=== PATIENT | female | born 1995 | race Caucasian/White ===

== ENCOUNTER 2018-06-06 15:16 | Inpatient (IN) | payer MEDICAID ==
[~2018-06-06 15:16] MED LIST: EPHEDrine SULFATE 50 MG/5 ML SYG
[2018-06-06] MEDS ORDERED: OXYTOCIN 30 UNITS/LR 500 ML IV ×3 (15:30→21:00)
[2018-06-06] MEDS ORDERED: CEFAZOLIN 2 GM/50 ML (PMX) 50 ML IVPB (15:30)
[2018-06-06] MEDS ORDERED: METHYLERGONOVINE 0.2 MG INJ IM ×2 (15:30→21:00)
[2018-06-06] MEDS ORDERED: CARBOPROST 250 MCG INJ IM ×2 (15:30→21:00)
[2018-06-06] MEDS ORDERED: MISOPROSTOL 200 MCG TAB PR ×2 (15:30→21:00)
[2018-06-06 15:47] LABS: ADD MAN DIFF? NO
[2018-06-06 15:52] LABS: WHITE BLOOD COUNT 7.3 10^3/ul (4.8-10.8)
[2018-06-06 15:52] LABS: BASOPHILS % 0.4 % (0.0-2.0); EOSINOPHILS # 0.1 10^3/ul (0.0-0.5); EOSINOPHILS % 0.7 % (0.0-7.0); HEMATOCRIT 36.5 % (37.0-47.0); HEMOGLOBIN 12.3 g/dl (12.0-16.0); LYMPHOCYTES # 1.6 10^3/ul (0.8-2.9); LYMPHOCYTES % 21.7 % (15.0-51.0); MEAN CORPUSCULAR HEMOGLOBIN 28.5 pg (29.0-33.0); MEAN CORPUSCULAR HGB CONC 33.7 g/dl (32.0-37.0); MEAN CORPUSCULAR VOLUME 84.5 fl (82.0-101.0); MEAN PLATELET VOLUME 11.4 fl (7.4-10.4); MONOCYTE # 0.4 10^3/ul (0.3-0.9); MONOCYTES % 5.6 % (0.0-11.0); NEUTROPHIL # 5.2 10^3/ul (1.6-7.5); NEUTROPHILS % 71.1 % (39.0-77.0); PLATELET COUNT 222 10^3/UL (140-415); RED BLOOD COUNT 4.32 10^6/ul (4.20-5.40); RED CELL DISTRIBUTION WIDTH 13.4 % (11.5-14.5)
[2018-06-06] MEDS: LACTATED RINGER'S 1,000 ML IV (16:05)
[2018-06-06 16:17] LABS: INR 0.81; PROTIME 11.3 Sec (11.9-14.9); PT RATIO 0.9
[2018-06-06 16:18] LABS: PARTIAL THROMBOPLASTIN TIME 27.6 Sec (23.0-35.0)
[2018-06-06] MEDS ORDERED: ONDANSETRON 4 MG INJ (18:25)
[2018-06-06] MEDS ORDERED: METOCLOPRAMIDE 10 MG INJ (18:25)
[2018-06-06] MEDS ORDERED: morphine SULFATE/PF (10 MG/10 ML) INJ (18:25)
[2018-06-06] MEDS ORDERED: KETOROLAC 30 MG INJ (18:39)
[2018-06-06] MEDS ORDERED: KETOROLAC 30 MG INJ IV (20:00)
[2018-06-06] MEDS ORDERED: DIPHENHYDRAMINE 50 MG INJ IV ×2 (20:00)
[2018-06-06] MEDS ORDERED: morphine 2 MG INJ IV ×3 (20:00)
[2018-06-06] MEDS ORDERED: ONDANSETRON 4 MG INJ IV (20:00)
[2018-06-06] MEDS ORDERED: NALOXONE (0.4 MG/ML) INJ IV ×2 (20:00)
[2018-06-06] MEDS ORDERED: morphine (1 MG/ML) 10ML SYRINGE IV ×3 (20:00)
[2018-06-06] MEDS: DEXTROSE 5%-LR 1,000 ML IV (20:46)
[2018-06-06] MEDS ORDERED: METHYLERGONOVINE 0.2 MG TAB PO (21:00)
[2018-06-06] MEDS ORDERED: LANOLIN HPA 1 PKT TOP (21:00)
[2018-06-06] MEDS: IBUPROFEN 800 MG TAB PO (22:56)
[2018-06-06] MEDS: SENNA/DOCUSATE NA (8.6MG/50MG) TAB PO (22:57)
[2018-06-07] MEDS: ONDANSETRON 4 MG INJ IV (01:23)
[2018-06-07] MEDS: LACTATED RINGER'S 1,000 ML IV ×3 (01:35→15:22)
[2018-06-07] MEDS: OXYTOCIN 30 UNITS/LR 500 ML IV (01:51)
[2018-06-07] MEDS: DEXTROSE 5%-LR 1,000 ML IV ×2 (04:46→12:46)
[2018-06-07] MEDS: IBUPROFEN 800 MG TAB PO ×3 (05:47→22:00)
[2018-06-07 08:06] LABS: ADD MAN DIFF? NO
[2018-06-07 08:12] LABS: BASOPHILS % 0.3 % (0.0-2.0); EOSINOPHILS % 0.5 % (0.0-7.0); HEMATOCRIT 32.3 % (37.0-47.0); HEMOGLOBIN 10.8 g/dl (12.0-16.0); LYMPHOCYTES # 1.6 10^3/ul (0.8-2.9); LYMPHOCYTES % 20.2 % (15.0-51.0); MEAN CORPUSCULAR HEMOGLOBIN 28.3 pg (29.0-33.0); MEAN CORPUSCULAR HGB CONC 33.4 g/dl (32.0-37.0); MEAN CORPUSCULAR VOLUME 84.8 fl (82.0-101.0); MEAN PLATELET VOLUME 11.6 fl (7.4-10.4); MONOCYTE # 0.6 10^3/ul (0.3-0.9); MONOCYTES % 7.4 % (0.0-11.0); NEUTROPHIL # 5.7 10^3/ul (1.6-7.5); NEUTROPHILS % 71.1 % (39.0-77.0); PLATELET COUNT 186 10^3/UL (140-415); RED BLOOD COUNT 3.81 10^6/ul (4.20-5.40); RED CELL DISTRIBUTION WIDTH 13.7 % (11.5-14.5)
[2018-06-07] MEDS: SENNA/DOCUSATE NA (8.6MG/50MG) TAB PO ×2 (08:47→20:33)
[2018-06-07] MEDS: DIPHTH/TET/ACEL PERTUSS (ADULT) 0.5 ML VIAL IM* (11:00)
[2018-06-07] MEDS: KETOROLAC 30 MG INJ IV (11:09)
[2018-06-07] MEDS: HYDROCODONE/APAP (5/325) TAB GTB ×2 (14:00→22:00)
[2018-06-07 15:01] LABS: RAPID PLASMA REAGIN NONREACTIVE (NR)
[2018-06-07] MEDS: HYDROCODONE/APAP (5/325) TAB NGT (20:34)
[2018-06-08] MEDS: HYDROCODONE/APAP (5/325) TAB GTB ×3 (06:19→22:47)
[2018-06-08] MEDS: IBUPROFEN 800 MG TAB PO ×3 (06:20→22:47)
[2018-06-08] MEDS: SENNA/DOCUSATE NA (8.6MG/50MG) TAB PO ×2 (09:19→21:24)
[2018-06-09] MEDS: IBUPROFEN 800 MG TAB PO ×2 (06:11→14:42)
[2018-06-09] MEDS: HYDROCODONE/APAP (5/325) TAB GTB ×2 (06:11→14:42)
[2018-06-09] MEDS: MEASLES,MUMPS,RUBELLA VACCINE INJ SC* (09:00)
[2018-06-09] MEDS: DIPHTH/TET/ACEL PERTUSS (ADULT) 0.5 ML VIAL IM* (09:00)
[2018-06-09] MEDS: SENNA/DOCUSATE NA (8.6MG/50MG) TAB PO (14:43)
== END 2018-06-09 16:08 | disposition home or self-care (01) | DRG 788 ==
LOC: L-D 15:16 → PP1 21:59
PROVIDERS: Obstetrics & Gynecology
PROC: 10D00Z1 Extraction of Products of Conception, Low, Open Approach (ICD-10-PCS; principal; 2018-06-06 17:00)
DX: O34.211 Maternal care for low transverse scar from previous cesarean delivery (principal); Z3A.39 39 weeks gestation of pregnancy; Z37.0 Single live birth
CPT/HCPCS: 85025; 85610; 85730; 86592; 86850; 86900; 86901; 99464

== ENCOUNTER 2018-09-10 10:03 | Emergency (ER) | payer MEDICAID ==
[2018-09-10] MEDS: SOD CHLORIDE 0.9% 1,000 ML IV (11:58)
[2018-09-10] MEDS: KETOROLAC 15 MG INJ IV (12:00)
[2018-09-10] MEDS: ONDANSETRON 4 MG INJ IV (12:00)
[2018-09-10 12:17] LABS: ADD MAN DIFF? NO
[2018-09-10 12:22] LABS: WHITE BLOOD COUNT 3.4 10^3/ul (4.8-10.8)
[2018-09-10 12:22] LABS: BASOPHILS % 0.6 % (0.0-2.0); EOSINOPHILS % 0.6 % (0.0-7.0); HEMATOCRIT 36.8 % (37.0-47.0); HEMOGLOBIN 12.5 g/dl (12.0-16.0); LYMPHOCYTES # 1.4 10^3/ul (0.8-2.9); LYMPHOCYTES % 42.7 % (15.0-51.0); MEAN CORPUSCULAR HEMOGLOBIN 28.5 pg (29.0-33.0); MEAN CORPUSCULAR VOLUME 83.8 fl (82.0-101.0); MEAN PLATELET VOLUME 10.4 fl (7.4-10.4); MONOCYTE # 0.5 10^3/ul (0.3-0.9); MONOCYTES % 14.8 % (0.0-11.0); NEUTROPHIL # 1.4 10^3/ul (1.6-7.5); NEUTROPHILS % 40.7 % (39.0-77.0); PLATELET COUNT 233 10^3/UL (140-415); RED BLOOD COUNT 4.39 10^6/ul (4.20-5.40); RED CELL DISTRIBUTION WIDTH 12.3 % (11.5-14.5)
[2018-09-10 12:27] LABS: ADD UMIC YES; UR ASCORBIC ACID NEGATIVE (NEGATIVE); UR BACTERIA FEW /HPF (NONE SEEN); UR BILIRUBIN (Dip) NEGATIVE (NEGATIVE); UR BLOOD (Dip) 3+ mg/dL (NEGATIVE); UR CLARITY SLIGHTLY CLOUDY (CLEAR); UR COLOR YELLOW (YELLOW); UR GLUCOSE (Dip) NEGATIVE (NEGATIVE); UR KETONES (Dip) NEGATIVE (NEGATIVE); UR LEUKOCYTE ESTERASE (Dip) TRACE Leu/ul (NEGATIVE); UR MUCUS FEW /HPF (NONE SEEN); UR NITRITE (Dip) NEGATIVE (NEGATIVE); UR RBC > 182 /HPF (0-5); UR SPECIFIC GRAVITY (Dip) 1.019 (1.003-1.030); UR SQUAMOUS EPITHELIAL CELL FEW /HPF (FEW); UR TOTAL PROTEIN (Dip) NEGATIVE (NEGATIVE); UR UROBILINOGEN (Dip) 2+ mg/dL (NEGATIVE); UR WBC 10 /HPF (0-5)
[2018-09-10 12:39] LABS: ALANINE AMINOTRANSFERASE 82 IU/L (13-69); ALBUMIN 4.1 g/dl (3.3-4.9); ALBUMIN/GLOBULIN RATIO 1.17; ALKALINE PHOSPHATASE 116 IU/L (42-121); ANION GAP 8 (5-13); ASPARTATE AMINO TRANSFERASE 49 IU/L (15-46); BILIRUBIN,INDIRECT 0.5 mg/dl (0-1.1); BILIRUBIN,TOTAL 0.5 mg/dl (0.2-1.3); BLOOD UREA NITROGEN 7 mg/dl (7-20); CARBON DIOXIDE 27 mmol/L (21-31); CHLORIDE 109 mmol/L (97-110); CREATININE 0.48 mg/dl (0.44-1.00); Estimated GFR > 60 mL/min (>60); GLUCOSE 90 mg/dl (70-220); LIPASE 94 U/L (23-300); POTASSIUM 3.6 mmol/L (3.5-5.1); SODIUM 144 mmol/L (135-144); TOTAL PROTEIN 7.6 g/dl (6.1-8.1)
== END 2018-09-10 13:44 | disposition home or self-care (01) ==
LOC: FTE 10:03
DX: K76.0 Fatty (change of) liver, not elsewhere classified (principal); R51 Headache
CPT/HCPCS: 36415; 76705; 80053; 81001; 81025; 83690; 84702; 85025; 87400; 96361; 96374; 96375; 99285-25

== ENCOUNTER 2019-01-02 20:54 | Emergency (ER) | payer MEDICAID ==
[2019-01-02] MEDS: ACETAMINOPHEN 325 MG TAB PO (21:47)
[2019-01-02] MEDS: morphine 2 MG INJ IV (23:45)
[2019-01-02] MEDS: SOD CHLORIDE 0.9% 1,000 ML IV (23:45)
== END 2019-01-03 01:15 | disposition home or self-care (01) ==
LOC: FTE 01-03 01:15
DX: O20.9 Hemorrhage in early pregnancy, unspecified (principal); R10.2 Pelvic and perineal pain; Z3A.01 Less than 8 weeks gestation of pregnancy
CPT/HCPCS: 76801; 76817; 81001; 84702; 85025; 86900; 86901; 96361; 96374; 99285-25

== ENCOUNTER 2019-01-05 19:04 | Emergency (ER) | payer MEDICAID | END 2019-01-05 20:51 | disposition home or self-care (01) | LOC: E/R 20:51 | DX: O03.9 Complete or unspecified spontaneous abortion without complication (principal) | CPT/HCPCS: 84702; 99283 ==